=== PATIENT | female | born 1980 | race Caucasian/White ===

== ENCOUNTER 2020-04-05 20:43 | Emergency (ER) | payer MEDICAID ==
--- NOTE | 2020-04-05 22:07 | EDM.PDOC ---
ED HPI GENERAL MEDICAL PROBLEM - General Chief Complaint: ENT Problem Stated Complaint: LEFT SIDE LOWER JAW/TOOTH PAIN Time Seen by Provider: 04/05/20 21:30 Source of Information: Reports: Patient, RN, RN Notes Reviewed History Limitations: Reports: No Limitations - History of Present Illness INITIAL COMMENTS - FREE TEXT/NARRATIVE: Patient with left-sided jaw pain. Patient did have a tooth removed on the right side several days ago and was in the dentist chair with approximately a 20- minute action time. Patient now notes left sided maxillary and temporal pain as well as jaw pain. She also notes outer ear pain, into the canal and in her ear pain. Pain follows the trigeminal nerve. She does not feel that this is TMJ. Patient is maxed out on allowable Tylenol, ibuprofen and naproxen. Patient does appear in distress. Onset: Today, Sudden Onset Date: 04/03/20 Onset Time: 10:00 Duration: Hour(s): Location: Reports: Head (Left-sided), Face, Neck Quality: Reports: Sharp Improves with: Reports: None Worsens with: Reports: Other (Patient), Movement Context: Reports: Other (Status post tooth extraction on the right side) Associated Symptoms: Reports: Headaches Treatments C[employer]AL [employer]ICE TECH: Reports: Acetaminophen, NSAIDS, Other Medication(s) Left Lower Jaw Pain Score (Numeric/FACES): 8 - Related Data Allergies Allergy/AdvReac Type Severity Reaction Status Date / Time cephalexin monohydrate Allergy Rash Verified 04/05/20 20:55 [From Keflex] morphine Allergy Nausea and Verified 04/05/20 20:55 Vomiting Sulfa (Sulfonamide Allergy Rash Verified 04/05/20 20:55 Antibiotics) Home Meds: Home Meds Cholecalciferol (Vitamin D3) [Vitamin D] 10,000 unit PO DAILY 04/05/20 [History] Cyanocobalamin (Vitamin B-12) [Vitamin B-12] 2,000 mcg PO DAILY 04/05/20 [History] atenoloL [Atenolol] 25 mg PO DAILY 04/05/20 [History] buPROPion [Wellbutrin SR] 300 mg PO DAILY 04/05/20 [History] Past Medical History Psychiatric History: Reports: Anxiety Hematologic History: Reports: B12 Deficiency - Past Surgical History HEENT Surgical History: Reports: Oral Surgery Social & Family History - Tobacco Use Smoking Status *Q: Current Every Day Smoker Years of Tobacco use: 5 Packs/Tins Daily: 0.2 - Caffeine Use Caffeine Use: Reports: Coffee - Recreational Drug Use Recreational Drug Use: No ED ROS ENT - Review of Systems Review Of Systems: Comprehensive ROS is negative, except as noted in HPI. ED EXAM, ENT - Physical Exam Exam: See Below Exam Limited By: No Limitations General Appearance: Alert, Moderate Distress Eye Exam: Bilateral Eye: PERRL Ears: Normal External Exam, Hearing Grossly Normal, Mastoid Swelling, Mastoid Tenderness, Canal Swelling, TM Bulging (Left-sided) Nose: Normal Inspection, Normal Mucousa, No Blood Mouth/Throat: Normal Inspection, Normal Gums, Normal Lips, Normal Oropharynx, No rmal Teeth Head: Atraumatic, Normocephalic Neck: Normal Inspection, Supple, Tender Lateral (Left-sided) Respiratory/Chest: No Respiratory Distress, Lungs Clear, Normal Breath Sounds Cardiovascular: Normal Peripheral Pulses, Regular Rate, Rhythm, No Edema Neurological: Alert, Oriented, CN II-XII Intact, Normal Cognition Psychiatric: Normal Affect, Normal Mood Skin: Warm, Dry, Intact, Normal Color, No Rash Lymphatic: No Adenopathy Course - Vital Signs Last Recorded V/S: Last Vital Signs Temp 36.4 C 04/05/20 21:01 Pulse 78 04/05/20 21:01 Resp 16 04/05/20 21:01 BP 142/91 H 04/05/20 21:01 Pulse Ox 98 04/05/20 21:01 - Re-Assessments/Exams Free Text/Narrative Re-Assessment/Exam: 04/05/20 22:09 Patient located on max amounts of Tylenol, ibuprofen and naproxen in a 24-hour. Along with combination max in a 24-hour period and length of no longer than max dose for 3 to 5 days. Patient understands he has been taking too much Tylenol and ibuprofen along with naproxen. Patient will be provided antibiotic for her ear pain in likely infection as well as prednisone for the inflammatory process and pain medicine that she may use over the next day or so to help get pain under control. If this does not improve she should follow-up with her primary care provider in the clinic. Departure - Departure Time of Disposition: 22:18 Disposition: Home, Self-Care 01 Condition: Fair Clinical Impression: Nerve pain Ear pain Qualifiers: Laterality: left Qualified Code(s): H92.02 - Otalgia, left ear - Discharge Information *PRESCRIPTION DRUG MONITORING PROGRAM REVIEWED*: Yes *COPY OF PRESCRIPTION DRUG MONITORING REPORT IN PATIENT JOSH: No Instructions: Earache, Adult Referrals: PCP,None [Primary Care Provider] - Forms: ED Department Discharge Additional Instructions: Patient may use hydrocodone over the next 1 to 2 days to help subside pain. Follow-up with primary care provider if this does not promote relief. Patient to take antibiotic until complete. Patient to start prednisone for 5 days starting tomorrow to be taken with food. Care Plan Goals: Provided amoxicillin, prednisone, and hydrocodone prescription [facility] and evaluated patient has no recent prescriptions. Sepsis Event Note (ED) - Evaluation Sepsis Screening Result: No Definite Risk - Focused Exam Vital Signs: Vital Signs Temp Pulse Resp BP Pulse Ox 04/05/20 21:01 36.4 C 78 16 142/91 H 98
== END 2020-04-05 22:20 | disposition home or self-care (01) ==
LOC: JP.ED 20:43
DX: G50.0 Trigeminal neuralgia (principal); H92.02 Otalgia, left ear; F41.9 Anxiety disorder, unspecified; F17.210 Nicotine dependence, cigarettes, uncomplicated; Z88.2 Allergy status to sulfonamides; Z88.5 Allergy status to narcotic agent; Z88.1 Allergy status to other antibiotic agents; Z79.899 Other long term (current) drug therapy
CPT/HCPCS: 99283